=== PATIENT | female | born 1980 | race Caucasian/White ===

== ENCOUNTER 2021-11-05 18:53 | Emergency (ER) | payer SELFPAY | END 2021-11-05 22:14 | disposition home or self-care (01) | LOC: JD.ED 18:53 | DX: R10.11 Right upper quadrant pain (principal); Z88.2 Allergy status to sulfonamides; Z88.8 Allergy status to other drugs, medicaments and biological substances | CPT/HCPCS: 36415; 80053; 81003; 83690; 85025; 99283; 99284 ==